=== PATIENT | female | born 1970 | race Caucasian/White ===

== ENCOUNTER 2020-02-04 15:25 | Outpatient (REF) | payer OTHER, SELFPAY ==
--- NOTE | 2020-02-04 15:31 | MM_ITS ---
EXAMINATION: MM SCREENING DIGITAL BREAST TOMOSYNTHESIS, BILATERAL CLINICAL INFORMATION: Screening. Asymptomatic. Prior history reduction mammoplasty. The lifetime risk of breast cancer based on the Tyrer-Cuzick Model is 11%. COMPARISON: Mammography: 05/04/2018, 09/19/2017, 02/03/2016; bilateral targeted breast ultrasound 05/04/2018 TECHNIQUE: Digital breast tomosynthesis is performed in both the craniocaudal and mediolateral oblique views along with computer-aided detection (CAD). Synthesized 2D images are generated from the tomosynthesis. FINDINGS: There are scattered areas of fibroglandular density (ACR BI-RADS breast composition Category b). Breast tissue composition borders on heterogeneously dense in the retroareolar and upper outer quadrants. There is minor scarring and benign anterior and dermal calcifications consistent with the prior history reduction mammoplasty. Biopsy clip marker again noted anterior lower inner left breast. Neither breast shows interval mass or developing density, interval architectural abnormality or abnormal calcifications. No significant changes. MM/MM tomosynthesis screening BI IMPRESSION: No significant changes from prior studies. ASSESSMENT: BI-RADS 2: Benign RECOMMENDATION: Routine annual mammography screening. This patient's information was entered into a reminder system with a target due date for their next mammogram.
== END 2020-02-04 15:26 | disposition home or self-care (01) ==
LOC: HO.MAMMO 15:25
PROVIDERS: Visit Provider Registered Nurse
DX: Z12.31 Encounter for screening mammogram for malignant neoplasm of breast (principal)
CPT/HCPCS: 77063; 77067

== ENCOUNTER 2020-03-31 06:54 | Outpatient (REF) | payer OTHER, SELFPAY | END 2020-03-31 06:55 | disposition home or self-care (01) | LOC: HO.LAB 06:54 | PROVIDERS: PCP Registered Nurse; Visit Provider Internal Medicine | DX: Z20.828 Contact with and (suspected) exposure to other viral communicable diseases (principal) | CPT/HCPCS: C9803; U0003 ==

== ENCOUNTER 2022-02-10 09:09 | Outpatient (REF) | payer OTHER, SELFPAY ==
--- NOTE | ~2022-02-10 | MM_ITS ---
EXAMINATION: MM SCREENING DIGITAL BREAST TOMOSYNTHESIS, BILATERAL CLINICAL INFORMATION: Screening. Asymptomatic. Prior history reduction mammoplasty. COMPARISON: Mammography: 02/04/2020, 05/04/2018, 09/19/2017 TECHNIQUE: Digital breast tomosynthesis is performed in both the craniocaudal and mediolateral oblique views along with computer-aided detection (CAD). Synthesized 2D images are generated from the tomosynthesis. FINDINGS: There are scattered areas of fibroglandular density (ACR BI-RADS breast composition Category b). Parenchymal pattern is similar to prior exams. There is minor scarring and scattered benign bilateral anterior and dermal calcifications consistent with the prior reduction mammoplasty. Axillary stromal markings anterior upper right axilla are again noted. There is no developing density or interval mass or architectural abnormality. No abnormal calcifications. No significant changes. MM/MM tomosynthesis screening BI IMPRESSION: No mammographic evidence of malignancy. ASSESSMENT: BI-RADS 2: Benign RECOMMENDATION: Routine annual mammography screening. This patient's information was entered into a reminder system with a target due date for their next mammogram.
== END 2022-02-10 09:10 | disposition home or self-care (01) ==
LOC: HO.MAMMO 09:09
PROVIDERS: PCP Registered Nurse; Visit Provider Registered Nurse
DX: Z12.31 Encounter for screening mammogram for malignant neoplasm of breast (principal)
CPT/HCPCS: 77063; 77067

== ENCOUNTER → 2024-05-17 15:00 | Outpatient (BNV) | payer OTHER, SELFPAY | PROVIDERS: PCP Family Medicine; Visit Provider Internal Medicine | DX: Z12.31 Encounter for screening mammogram for malignant neoplasm of breast (principal) | CPT/HCPCS: 77063; 77067 ==

== ENCOUNTER 2025-03-15 11:24 | Emergency (ER) | payer OTHER, SELFPAY ==
[2025-03-15 11:52] VITALS: BP 152/93; PULSE 80; RESP 18; TEMP 36.3; O2SAT 99; BMI 30.1
[2025-03-15 12:11] LABS: MANUAL DIFF FLAG NO
[2025-03-15 12:17] LABS: Hematocrit 42.8 % (37.0-47.0); Hemoglobin 14.5 g/dl (12.0-16.0); Imm Gran Abs Auto 0.02 X10*3/uL (0.00-0.03); Imm Gran Pct Auto 0.4 % (0.0-0.4); Lymphocytes Absolute Auto 1.3 X10*3/uL (1.2-4.9); Mean Corpuscular HGB Conc 33.9 g/dl (31.0-35.0); Mean Corpuscular Hemoglobin 31.4 pg (27.0-33.0); Mean Corpuscular Volume 92.6 fL (80.0-98.0); NRBC Abs Auto 0.000 X10*3/uL (0.0-0.012); NRBC Pct Auto 0.0 /100WBC (0.0-0.2); Platelet Count 246 X10*3/uL (160-400); Red Blood Count 4.62 X10*6/uL (4.20-5.50); White Blood Count 5.3 X10*3/uL (4.8-10.8)
[2025-03-15 12:21] LABS: Appearance Urine Clear; Glucose Urine UA Negative (Negative); PH 6.0 (5.0-9.0); Specific Gravity - Urine 1.010 (1.005-1.025)
[2025-03-15 12:28] LABS: Cannabinoid Screen Urine Not Detected (Not Detect)
[2025-03-15 12:46] LABS: Acetaminophen LAB < 3 mcg/mL (<30); Alanine Aminotransferase 19 U/L (0-31); Albumin Level 4.8 g/dL (3.5-5.0); Alkaline Phosphatase 75 U/L (39-117); Anion Gap 11 (12-20); Aspartate Amino Transferase 22 U/L (5-31); Blood Urea Nitrogen 10 mg/dL (9-16); Calcium 9.7 mg/dL (8.4-10.2); Carbon Dioxide 27 mmol/L (22-29); Chloride 106 mmol/L (96-108); Creatinine Clr Calc Pharmacy 104.1; Estimated Glomerular Filt Rate > 60; Magnesium 1.9 mg/dL (1.6-2.6); Potassium 4.1 mmol/L (3.3-5.1); Salicylate < 5.0 mg/dL (15-30); Sodium 140 mmol/L (135-145); Total Protein 7.4 g/dL (6.5-8.0)
--- NOTE | 2025-03-15 13:09 | ED_ITS ---
HPI - Psych General Chief Complaint: Psychiatric Symptoms Stated Complaint: SEC 12,CRISIS,SI STATEMENTS/FROM WORK PER EMS Time Seen by Provider: 03/15/25 11:27 Source: patient and EMS Mode of arrival: EMS Limitations: no limitations History of Present Illness ED Provider: MICHELLE Dang HPI Narrative: Chief Complaint: ?Brought to the emergency department after allegedly making suicidal statements at work.? History of Present Illness: 54-year-old female with no past medical or psychiatric history was transported to the ED on a Section 12 initiated at her workplace. Earlier today her furnace/water heater broke, leaving her house cold with children at home. While frustrated, she reportedly made a comment ?I?m gonna drive my car ? off a wilver,? which a coworker heard and later relayed to the principal, leading to involvement of the high school art teacher and subsequent Section 12. Approximately 1?2 hours after the comment she was removed from her classroom by police and brought by ambulance. She describes the event as humiliating, embarrassing, unnecessary, and remains confused as to why she is here. She firmly denies suicidal ideation, homicidal ideation, plans, intent, or prior psychiatric history. She states she was not evaluated by a counter supply worker and does not feel such evaluation is necessary given denial of anxiety, depression, or suicidality. She denies alcohol, tobacco, or illicit drug use. Other stressors include of mother this year. She has no acute medical complaints. Related Data Allergies Allergy/AdvReac Type Severity Reaction Status Date / Time No Known Allergies Allergy Verified 03/15/25 11:57 Review of Systems 2 Review of Systems: Yes all other systems are reviewed and are negative [facility] Past Medical History Attestation statement: The following information was validated with the patient. Source: old records reviewed and nursing notes reviewed Social History Social History Alcohol intake: current Alcohol type: wine Smoked in Last 30 Days: No Use of substances other than those prescribed or required for medical reasons: No Advance Directives: No Advance Directives Information Provided: Yes Do you have a plan to hurt others: No Plan Patient : No Physical Exam 2 Exam: Exam: Appearance: Alert.? Oriented X3.? No acute distress.? Head: Normocephalic, atraumatic, no step-offs or deformities Eyes: Pupils equal, round and reactive to light.? Neck: Normal inspection.? Neck supple.? CVS: Normal heart rate and rhythm.? Pulses normal.? Respiratory: No respiratory distress.? Breath sounds normal.? Skin: Skin warm and dry.? Normal skin color.? Normal skin turgor.? Extremities: No lower extremity edema.? No calf ttp. 5/5 strength to bilateral upper and lower extremities Back: No midline tenderness, no C-spine tenderness, full range of motion, no CVA tenderness bilaterally Neuro: Oriented X 3.? No motor deficit.? No sensory deficit. CN 2-12 intact Vital Signs: Vital Signs: Last Vital Signs Temp 97.2 F 03/15/25 15:30 Pulse 18 L 03/15/25 15:30 Resp 18 03/15/25 15:30 BP 148/88 H 03/15/25 15:30 Pulse Ox 98 03/15/25 15:30 O2 Del Method Room Air 03/15/25 15:30 BMI result Body Mass Index 30.1 vss Course Course Course Narrative: My attending Dr. Kate aware of case. Reevaluation(s) Reevaluation #1: CBC unremarkable. Chemistry with no acute findings needing intervention. UA w/ trace bacteria but not UTI sx. Salicylates, acetaminophen and ethanol negative. Story is not making sense to me, unclear why patient was sectioned will reach out for collateral. Time: 15:29 Reevaluation #2: Spoke with Quick Service Technician Brian, who acknowledged that the patient did not make any suicidal statements directly to him. He stated that he initiated the Section 12 based solely on what others had reported. When asked whether the patient was able to speak with someone from crisis, he did not provide a clear answer and instead responded with, ?I don?t think she would speak to them.? He did note that the patient was cooperative throughout the process. Witnesses to this phone call were Nallely Frias ( who was part of the conversation) and Allison Slater, and Francois Barry from crisis who were in the room for this conversation. I explained that we need to know who reported the concerning statements so that we can obtain collateral information. Based on Officer Brian?s account, there was no directly witnessed behavior or statement to justify the section, and I did not want to hold the patient inappropriately based solely on hearsay. He stated that he was unsure of the reporting individual?s name and advised us to contact the school to obtain that information and to speak with the identified witnesses. Time: 13:30 Reevaluation #3: Spoke with Teressa, Principal of [employer] [facility], who reported that she was not present during the incident. She stated that multiple staff members came to her and reported that the patient made suicidal comments in the office with a ?clear plan,? including statements such as, ?It is going to be messy,? and ?I?m not just going to take pills,? as well as comments implying she would not be present at school on Tuesday. Patient ademantly denies this. The principal reiterated that she did not personally witness these statements and could not attest to their accuracy but the employes who reported this were very concerned. She reported the information to the Quick Service Technician, who subsequently initiated the Section 12. She stated that she ?had nothing to do with? the decision to section the patient beyond relaying what was reported to her. Nallely from crisis attempted to contact the school and was connected with the [employer] Operator, who was reportedly trying to identify and contact the individual who initially reported the comments; however, Nallely was ultimately unable to speak with this person. The school expressed that they did not feel our request to speak with the reporting staff member was appropriate and did not believe that person needed to be questioned. Per the access clinician, obtaining direct collateral from that staff member was not considered part of their protocol. Time: 14:15 Additional Reevaluation(s): Lydia cleared by CARE team Nallely. [facility] was not cooperative with collateral information from person who made the allgations, this information would of been helpful. However patient has no prior attempts, no psychiatric history, Sister at bedside reports she has no concerns for her sister and feels like she is safe for DC home. She sera SI and HI. Appears calm and has been cooperative since [facility]. Medical Decision Making Medical Decision Making MDM Narrative: Clinical Summary: 54-year-old female brought in on Section 12 after a possibly misinterpreted comment at work; patient denies any suicidal or homicidal ideation, plan, or intent and has no prior psychiatric history. Problem #1: Evaluation after alleged suicidal statements Assessment: Patient denies SI/HI, plan, or intent; no prior psychiatric history; appears confused and distressed about circumstances of involuntary transport. Plan: * Medical clearance ( labs, UTOX, ethanol) * Care team consult * Collateral information ( underlying reason for section unclear as leora seems like a good historian and is denying what is written on the section) Differential Diagnosis Differential Diagnoses: The differential diagnosis associated with the presentation includes * Adjustment reaction to acute psychosocial stressor (e.g., distress over home situation and workplace misunderstanding) ( most likely) * Misinterpretation of statements without underlying psychiatric disorder ( most likely) * Mood disorder (depression, bipolar disorder) ? less likely given denial of symptoms and no history * Anxiety disorder ? less likely given denial of symptoms * Substance-induced psychiatric symptoms ? unlikely given denial of substance use * Psychotic disorder ? unlikely given denial of hallucinations and no history * Medical causes of altered mental status (e.g., metabolic, neurologic) ? unlikely given normal labs and exam Admission/Observation Consideration of admission/observation: Escalation of care including admission/observation considered Lab Data MDM Lab Attestation statement: I reviewed the patient's lab results. 03/15/25 12:05 03/15/25 12:05 Labs: Lab Results 03/15/25 Range/Units 12:05 WBC 5.3 (4.8-10.8) X10*3/uL RBC 4.62 (4.20-5.50) X10*6/uL Hgb 14.5 (12.0-16.0) g/dl Hct 42.8 (37.0-47.0) % MCV 92.6 (80.0-98.0) fL MCH 31.4 (27.0-33.0) pg MCHC 33.9 (31.0-35.0) g/dl RDW 12.1 (11.0-16.0) % Plt Count 246 (160-400) X10*3/uL MPV 9.8 (9.4-12.3) fL Immature Gran % (Auto) 0.4 (0.0-0.4) % Neut % (Auto) 66.1 (45-73) % Lymph % (Auto) 23.8 (20-40) % [place] % (Auto) 7.2 (2-11) % Eos % (Auto) 2.1 (0-4) % Baso % (Auto) 0.4 (0-2) % Lymph # (Auto) 1.3 (1.2-4.9) X10*3/uL [place] # (Auto) 0.4 (0.1-1.2) X10*3/uL Eos # (Auto) 0.1 (0.0-0.4) X10*3/uL Baso # (Auto) 0.0 (0.0-0.2) X10*3/uL Abs Immat Gran (auto) 0.02 (0.00-0.03) X10*3/uL Absolute Neuts (auto) 3.5 (2.0-8.3) x10*3/uL Absolute Nucleated RBC 0.000 (0.0-0.012) X10*3/uL Nucleated RBC % (auto) 0.0 (0.0-0.2) /100WBC Sodium 140 (135-145) mmol/L Potassium 4.1 (3.3-5.1) mmol/L Chloride 106 (96-108) mmol/L Carbon Dioxide 27 (22-29) mmol/L Anion Gap 11 L (12-20) BUN 10 (9-16) mg/dL Creatinine 0.60 (0.5-1.4) mg/dL Estim Creat Clear Calc 104.1 Estimated GFR > 60 Random Glucose 141 H (60-115) mg/dL Calcium 9.7 (8.4-10.2) mg/dL Magnesium 1.9 (1.6-2.6) mg/dL Total Bilirubin 0.5 (0.0-1.0) mg/dL AST 22 (5-31) U/L ALT 19 (0-31) U/L Alkaline Phosphatase 75 (39-117) U/L Total Protein 7.4 (6.5-8.0) g/dL Albumin 4.8 (3.5-5.0) g/dL Urine Color Yellow Urine Appearance Clear Urine pH 6.0 (5.0-9.0) Ur Specific [place] 1.010 (1.005-1.025) Urine Protein Negative (Neg-Trace) mg/dL Urine Glucose (UA) Negative (Negative) mg/dL Urine Ketones Negative (Negative) mg/dL Urine Blood Negative (Negative) Urine Nitrite Negative (Negative) Ur Leukocyte Esterase Negative (Negative) Urine RBC 0-2 (0-2) /HPF Urine WBC 0-5 (0-5) /HPF Ur Squamous Epith Cells 6-10 (0-2) /HPF Urine Bacteria Trace (None Seen) Hyaline Casts 0-2 (0-2) /LPF Salicylates < 5.0 L (15-30) mg/dL Urine Opiates Screen Not Detected (Not Detect) Ur Buprenorphine Scrn Not Detected (Not Detect) ng/mL Ur Oxycodone Screen Not Detected (Not Detect) ng/mL Urine Methadone Screen Not Detected (Not Detect) ng/mL Urine Fentanyl Screen Not Detected (Not Detect) Acetaminophen < 3 (<30) mcg/mL Ur Barbiturates Screen Not Detected (Not Detect) Ur Phencyclidine Scrn Not Detected (Not Detect) Ur Amphetamines Screen Not Detected (Not Detect) U Benzodiazepines Scrn Not Detected (Not Detect) Urine Cocaine Screen Not Detected (Not Detect) U Marijuana (THC) Screen Not Detected (Not Detect) Ethyl Alcohol < 10 mg/dL Independent Historian Clinical information obtained from an independent historian. History obtained from or confirmed by: EMS and Other ([employer]acy Salesperson Brian, Principal at [facility] ) External Record Review No previous records to review Prescription Management N/A Critical Care Time Critical Care Time Critical Care Time: No Discharge Plan Discharge Clinical Impression: Acute anxiety Patient Disposition: Home, Self-Care Instructions: Anxiety (ED) Additional Instructions: Take your medications as prescribed. If you were prescribed antibiotics today, it is important that you take your medication to their entirety, do not skip any doses, do not finish them early. Follow-up with your primary care provider this week. Return to the emergency department with new or worsening symptoms. Such as fevers, chills, chest pain, shortness of breath, nausea, vomiting, dizziness, headache, vision changes, lethargy In case of emergency call 911 Referrals: ED Physician,Scott [Physician, Emergency Medicine] Drake Saenz MD [Primary Care Provider, Internal Medicine] Stand Alone Forms: Work/School Release Interventions: [place]-Suicide Risk Severity Scale Last Done: 03/15/25 11:57 ED Discharge Assessment Last Done: 03/15/25 15:30 Discharge Date/Time: 03/15/25 15:36 Print Language: Com[place]an
--- NOTE | 2025-03-15 13:29 | PC.NURSE ---
care team spoke with patient, provider also speaking with patient.
[2025-03-15 15:30] VITALS: BP 148/88; PULSE 18; RESP 18; TEMP 36.2; O2SAT 98
--- NOTE | 2025-03-15 15:50 | MHC.CARE ---
Pt does not present as an imminent risk or meet the criteria for a higher level of care. ED provider in agreement.
--- OUTSIDE RECORDS SUMMARY | 2025-03-15 17:28 | XMS_ITS | Clinical Summary ---
Author Organization [facility] Address [address] [place] [address] Phone Care Team Providers Care Kinder Teacher Name Role Phone John Benton PA-C Primary Care Provider [phone] Allergies No known active allergies Medications atorvastatin (LIPITOR) 10 MG tablet Take 1 tablet by mouth every morning. 05/07/19 25 Active hydrocortisone acetate (ANUSOL-HC) [address] 1 suppository (25 mg total) rectally 2 (two) times a day as needed for hemorrhoid discomfort. For intermittent short-term use (ie, no more than 7 days) due to risk of mucosal thinning 14 suppository 11/09/19 25 Active lisinopril (PRINIVIL,ZESTR IL) 10 MG tabletIndicatio ns:Hypertension Take 1 tablet (10 mg total) by mouth daily. 90 tablet 3 11/22/19 25 Active estradioL (VIVELLE-DOT) 0.0375 mg/[address] 1 patch onto the skin 2 (two) times a week. 11/10/19 25 Active progesterone (PROMETRIUM) 100 mg capsule Take 100 mg by mouth nightly at bedtime. 11/18/19 25 Active LORazepam (ATIVAN) 0.5 MG tabletIndicatio ns:Anxiety Take 1 tablet (0.5 mg total) by mouth daily as needed for anxiety. 30 tablet 12/25/19 25 Active Active Problems Problem Noted Date Diagnosed Date Acute left-sided low back pain without sciatica 07/03/2024 Menopausal symptom 07/03/2024 Mixed hyperlipidemia 07/03/2024 Assessment & Plan (12/24/2024 4:08 PM EDT): Patient with a history of hyperlipidemia on atorvastatin 10 mg p.o. daily which will be continued. It we will obtain a repeat lipid panel and CMP Atypical squamous cell owen es of undetermined significance (ASCUS) on cervical cytology with positive high risk human papilloma virus (HPV) 06/08/2022 Overview (06/08/2022): 05/2022 study. No other hx abnormals. Referred to [facility] for Colposcopy Anxiety 06/06/2022 Assessment & Plan (12/24/2024 4:09 PM EDT): Patient with a history of anxiety who is on lorazepam 0.5 mg p.o. daily as needed and was on sertraline however discontinued this medication secondary to weight gain and felt that it was not working. She mentions that her anxiety has slightly improved after starting hormone therapy secondary to menopausal symptoms. However her anxiety kicked up over the summer after she had lost her mom and also dealing with family issues with regards to being accusatory. [facility] verified and new prescription for lorazepam sent to the pharmacy. Assessment & Plan (06/06/2022 6:13 PM EST): Continue sertraline as prescribed. Continue lorazepam as needed, takes rarely. External hemorrhoids 03/12/2019 Hypertension 07/24/2018 Assessment & Plan (12/24/2024 4:08 PM EDT): Patient has a history of hypertension which is well-controlled on lisinopril 10 mg p.o. daily which we will continue. We will obtain a CMP Assessment & Plan (06/06/2022 6:13 PM EST): Well-managed on current medication regimen. Resolved Problems Problem Noted Date Diagnosed Date Resolved Date Acute sinusitis 08/25/2024 12/24/2024 Assessment & Plan (08/25/2024 3:50 PM EDT): Patient appears well overall in no acute distress no acute respiratory distress Augmentin take as directed take with food and probiotic. Continue Flonase as needed recommend daily allergy medication Drink plenty of fluids and rest OTC medications for symptoms control Discussed with patient to contact ER if develops severe shortness of breath, severe dizziness, syncope, chest pain. Contact PCP office no improvement in symptoms 7- 10 days sooner worsening symptoms. Encounters Date Type Department Care Team Description 12/24/2024 3:20 PM EDT Office Visit [facility] Internal Medicine [address] [place] [address] John Benton PA-C Mixed hyperlipidemia (Primary Dx); Anxiety; Primary hypertension from Last 3 Months Immunizations Immunization Administration Dates Next Due COVID-19 (Pre-01/31) Moderna Vaccine, mRNA, PF 07/27/2020,06/29/2020 INFLUENZA, SPLIT VIRUS, TRIVALENT PF 03/17/2016 Influenza Quadrivalent Prese rvative Free IM 06/01/2022,05/22/2021,05/20/2020,2019,02/07/2018 Tdap 05/22/2021,03/08/2017 Family History Medical History Relation Comments Colon polyps Brother Sleep apnea Brother Breast cancer Cousin pre-lis in 30s Anxiety disorder Daughter Sleep apnea Father Breast cancer Maternal Aunt post-lis Heart failure Mother Hypertension Mother Stroke Mother gi bleed Mother Colon polyps Sister Sleep apnea Sister Cancer Neg Hx Diabetes Neg Hx Heart disease Neg Hx Relation Status Comments Brother Alive Cousin Alive Daughter Alive Father Alive Maternal Aunt Alive Maternal Grandfather Maternal Grandmother Mother Paternal Grandfather Paternal Grandmother Sister Alive Social History Tobacco Use Types Packs/Day Years Used Date Smoking Tobacco: Never Smokeless Tobacco: Never Tobacco Cessation:Counseling Given: Not Answered Alcohol Use Standard Drinks/Week Comments Yes 2 (1 standard drink = 0.6 oz pur e alcohol) 1-2 drinks, 2-3 x week Child or Family Care Answer Date Record ed Do you have problems with on e of the following making it difficult for you to work, study, or receive health care? No 05/25/2022 Education Answer Date Recorded Are you interested in more education? Not on colleen e 05/25/2024 Are you concerned about learning? Not on file 05/25/2024 No 05/25/2024 No 05/25/2024 Food Answer Date Recorded Within the past 6 months we worried whether our food would run out before we got money to buy more. Never True 05/25/2022 Within the past 6 months the food we bought just didn't last and we didn't have enough money to get more. Never True Residential Stability Answer Date Recor ded What is your housing situation today? I have magdalene sing 05/25/2022 How many times have you move d in the past 12 months? Zero (I did not move) 05/25/2022 Paying for Meds Answer Date Recorded Do you have trouble paying for medicines? No 05/25/2022 Paying Utility Bills Answer Date Record ed Do you have trouble paying your heating or elect ricity bill? Yes 05/25/2022 Transportation Answer Date Recorded Has the lack of transportati on kept you from medical appointments or from getting medications? No 05/25/2022 Unemployment Answer Date Recorded Are you currently unemployed or working on a part-time or temporary basis, and looking for work? No 05/25/2022 Digital Access Answer Date Recorded No 09/03/2022 No 09/03/2022 Reliable internet access at home? Not on file 09/03/2022 Device with a working camera? Not on file Intimate Partner Violence Answer Date R ecorded Denied Basic Needs Not on file 07/02/2024 In the past 12 months have y ou been in a relationship with a person who hurts, threatens, or tries to control you? No 07/02/2024 Worried food would run out Not on file 07/02 In the past 12 months have y ou been in a relationship with a person who hurts, threatens, or tries to control you? No 07/02/2024 Comments No Sex and Gender Information Value Date Recorded Sex Assigned at Not on file Legal Sex Female 11:43 AM EDT Gender Identity Not on file Sexual Orientation Not on file Last Filed Vital Signs Vital Sign Reading Time Taken Comments Blood Pressure 108/62 12/24/2024 2:56 PM EDT Pulse 67 12/24/2024 2:56 PM EDT Temperature 36.4 C (97.5 F) 05/20/2020 10:19 AM EST Respiratory Rate 19 12/24/2024 2:56 PM EDT Oxygen Saturation 99% 12/24/2024 2:56 PM EDT Inhaled Oxygen Concentration - - Weight 78.3 kg (172 lb 9.6 oz) 12/24/2024 2:56 P M EDT Height 159.4 cm (5' 2.76 ) 12/24/2024 2:56 PM ED T Body Mass Index 30.81 12/24/2024 2:56 PM EDT Plan of Treatment Upcoming Encounters Date Type Department Care Team (Late st Contact Info) Description 07/04/2025 3:20 PM EDT Office Visit [facility] Internal Medicine [address] [place] [address] John Benton PA-C [address] [place] [address] Health Maintenance Due Date Last Done Comments COLOGUARD 2014 FIT TEST 2014 FOBT 2014 SIGMOIDOSCOPY 2014 VIRTUAL COLONOSCOPY 2014 CREATININE LEVEL 04/19/2025 04/19/2024, 02/2022, 05/20/2020, Additional history exists POTASSIUM LEVEL 04/19/2025 04/19/2024, 05/12, 04/20/2019 BLOOD PRESSURE 06/23/2025 12/24/2024 DEPRESSION SCREENING 07/02/2025 07/02/2024, 02/24/20 21 PAP SMEAR 07/06/2025 07/06/2024, 05/13, 02/10/2018, Additional history exists INFLUENZA VACCINE (#1) 2025 , 05/22/2021, 05/20/2020, Additional history exists Postponed from 11/09/2024 (Patient Declines / Guardian Declines) COVID-19 VACCINE ( season) 2025 05/05/2021, 07/27/2020, 06/29/2020 Postponed from 12/10/2024 (Patient Declines / Guardian Declines) HEPATITIS C SCREENING 12/24/2025 Postpo thuy from 07/24/1987 (Patient Declines / Guardian Declines) HIV ONE-TIME SCREENING (18-65 YEARS) 12/24/2025 Postponed from 07/24/1987 (Patient Declines / Guardian Declines) PNEUMOCOCCAL VACCINES (50+ years) (1 of 1 - PCV) 12/24/2025 Postponed from 07/24/2019 (Patient Declines / Guardian Declines) ZOSTER VACCINES (1 of 2) 12/24/2025 Pos tponed from 07/24/2019 (Patient Declines / Guardian Declines) MAMMOGRAM 05/17/2026 05/17/2024, 05/2021, 02/04/2020 COLONOSCOPY 03/17/2027 03/17/2020 COLORECTAL CANCER SCREENING 03/17/2027 SCREENING FOR DIABETES 04/19/2027 , 04/19/2024, 04/20/2019 LIPID PANEL 04/19/2029 04/19/2024, 0204/2021, 04/20/2019, Additional history exists Adult Td,Tdap Booster 05/22/2031 05/22/2021, 017 RSV VACCINE (1 - 1-dose 75+ series) 2044 SMOKING STATUS SCREENING (Once After 26 Yrs) Completed 12/24/2024 HEPATITIS A VACCINES Aged Out No long er eligible based on patient's age to complete this topic HIB VACCINES Aged Out No longer eligi ble based on patient's age to complete this topic MENINGOCOCCAL VACCINES (ACWY) Aged Out No longer eligible based on patient's age to complete this topic MENINGOCOCCAL VACCINES (B) Aged Out N o longer eligible based on patient's age to complete this topic Medical Devices Not on file Procedures Procedure Name Priority Date/Time Associated Diagnosis Comments PAP TEST Routine 07/06/2024 9:40 AM EDT HM MAMMOGRAPHY Routine 05/17/2024 9:39 AM EST LIPID PANEL Routine 04/19/2024 2:42 PM EST COMPREHENSIVE METABOLIC PANEL (CMP) Routine 04/19/2024 2:42 PM EST ENDOSCOPY, COLON 03/17/2020 11:5 3 AM EST OUTSIDE GLUCOSE FASTING Routine 04/20/2019 from Last 3 Months or Most Recently Relevant to Health Maintenance Results * Pap Test (07/06/2024 9:40 AM EDT) Historical Provider CYTOLOGY ORDERABLES Final Result * HM MAMMOGRAPHY FOR RESULT ENTRY ONLY (05/17/2024 9:39 AM EST) Historical Provider HEALTH MAINTENANCE Final Result * Comprehensive metabolic panel (04/19/2024 2:42 PM EST) Sodium - External Potassium - External 4.5 Chloride - External CO2 - External BUN - External Creatinine - External 0.66 Glucose - External 113 Albumin - External Protein - External Calcium - External Alkaline Phosphatase - External Bilirubin, total - External AST - External ALT - External 25 Globulin - External eGFR - External Anion Gap - External Historical Provider LAB BLOOD BKR ORDERABLES Edited Result - Final * Lipid panel (04/19/2024 2:42 PM EST) HDL - External 79 Cholesterol, Total - External 287 Triglycerides - External 94 LDL, calculated - External 192 Cardiac Risk Ratio - External Non-HDL Cholesterol - External Historical Provider LAB BLOOD BKR ORDERABLES Edited Result - Final * ENDOSCOPY, COLON (03/17/2020 11:53 AM EST) Narrative Transcriptions Darryl Howell MD - 03/17/2020 11:53 AM EST Patient Name: Isha Wade Attending MD:: DARRYL HOWELL MD Procedure Date: 03/17/2020 11:53 AM Date of : 1970 Age: 49 Admit Type: Outpatient Gender: Female Room: [place] [address] Referring MD: Carmen Santana Exam Type: Colonoscopy Indications: Colon cancer screening in patient at increased risk: Family history of 1st-degree relative with colonpolyps before age 60 years Medications: Monitored Anesthesia Care Procedure: Informed consent was obtained from the patient after discussion of the indications, limitations, alternatives, benefits, and risks of the procedure. Risks specifically discussed include but are not limited to medication reactions, missed lesions, bleeding, perforation, or the need for emergentsurgery. Throughout the procedure, the patient's bloodpressure, pulse, end-tidal CO2, and oxygen saturations were monitored continuously. The Olympus pediatric variable colonoscopePCF-[id number] #5 was introduced through the anus and advanced tothe terminal ileum, with identification of theappendiceal orifice and IC valve. The colonoscopy was performed without difficulty. The patient tolerated theprocedure fairly well. The quality of the bowel preparationwas good. Complications: No immediate complications. Estimated blood loss:None. Findings: The perianal and digital rectal examinations were normal. Pertinent negatives include normal sphincter tone. Retroflexion in the right colon was performed. The terminal ileum appeared normal. The exam was otherwise without abnormality on direct and retroflexion views. Non-bleeding hemorrhoids were found during retroflexion. The hemorrhoids were mild. Impression: - The examined portion of the ileum was normal. - The examination was otherwise normal on direct and retroflexion views. - Non-bleeding hemorrhoids. - No specimens collected. Recommendation: - Repeat colonoscopy in 7 years for screeningpurposes. DARRYL HOWELL MD 03/17/2020 12:18:37 PM This report has been signed electronically. Number of Addenda: 0 Note Initiated On: 03/17/2020 11:53 AM Procedure Code(s): --- Professional --- 94227, Colonoscopy, flexible; diagnostic, including collection of specimen(s) by brushing or washing, when performed (separateprocedure) --- Technical --- 71213, Colonoscopy, flexible; diagnostic, including collection of specimen(s) by brushing or washing, when performed (separateprocedure) Diagnosis Code(s): --- Professional --- Z83.71, Family history of colonic polyps --- Technical --- Z83.71, Family history of colonic polyps CPT copyright 2018 [employer]. All rights reserved. The codes documented in this report are preliminary and upon mold breaker reviewmay be revised to meet current compliance requirements. Procedure Date: 03/17/2020 11:53:[address] [place] [id number] Carmen Santana [facility] GI PROCEDURE ORDERABLE S Final Result * (ABNORMAL) Outside Glucose,Fasting (04/20/2019) Glucose, fasting - External 113(A) 65 - 99 mg/dL Historical Provider LAB BLOOD ORDERABLES Chrystal l Result from Last 3 Months or Most Recently Relevant to Health Maintenance [facility] H[facility] Care Teams Kinder Teacher Relationship Specialty Start Date End Date John Benton PA-C [address] [place] [phone] [email or web address] PCP - General Physician Stone Rougher 07/03/24 Additional Source Comments The information contained in this document represents components of the legal health record. It is not the complete legal health record.[facility]
--- OUTSIDE RECORDS SUMMARY | 2025-03-15 17:28 | XMS_ITS | Encounter Summary ---
Author Organization [facility] Address [address] [place] [address] Phone Care Team Providers Care Bottom Pounder Cement Shoes Name Role Phone Denajoselyn Carmen Tawnya [facility] Primary Care Provider Carmen Santana [facility] Primary Care Provider Bonnie Collins WELL DRILL OPERATOR Primary Care Provider [phone] Shima Stallings MEDICINE TECHNOLOGIST Primary Care Provider [phone] Pcp, Unknown Primary Care Provider John Machuca PA-C Primary Care Provider [phone] Encounter Details Date Type Department Care Team (Late st Contact Info) Description 03/17/2020 Procedure Pass [facility] Endoscopy Admitting Dept Virtual Department [address] [place] [phone] Social History Tobacco Use Types Packs/Day Years Used Date Smoking Tobacco: Never Smokeless Tobacco: Never Alcohol Use Standard Drinks/Week Comments Yes 3 (1 standard drink = 0.6 oz pure alcohol) a few glasses of wine or beer a week. Comments No Sex and Gender Information Value Date Recorded Sex Assigned at Not on file Legal Sex Female 11:43 AM EDT Gender Identity Not on file Sexual Orientation Not on file documented as of this encounter Plan of Treatment Upcoming Encounters Date Type Department Care Team (Late Contact Info) Description 07/04/2025 3:20 PM EDT Office Visit [facility] Internal Medicine [address] [facility] [place] [address] John Benton PA-C [address] [place] [address] [email or web address] documented as of this encounter Visit Diagnoses Not on filedocumented in this encounter Additional Health Concerns Assessment Noted Time PHQ-2 Depression Total Score: 0 05/10/19 20 12:53 PM EST documented as of this encounter Care Teams Bottom Pounder Cement Shoes Relationship Specialty Start Date End Date Carmen Santana CNP [address] [place] [address] [email or web address] PCP - General Internal Medicine 02/10/18 05/07/20 Carmen Santana CNP [address] [place] [phone] PCP - General Internal Medicine 05/08/20 10/25/22 Bonnie Collins, MICHEL [address] [place] [phone] [email or web address] PCP - General Family Medicine 10/26/22 11/14/22 Shima Stallings FNP [address] [phone] PCP - General Nurse Practitioner 12/22/23 04/08/24 Pcp, Unknown PCP - General 05/15/24 07/02/24 John Benton PA-C [address] [place] [email or web address] PCP - General Physician Kennel Hand 07/03/24 documented as of this encounter Additional Source Comments The information contained in this document represents components of the legal health record. It is not the complete legal health record.[facility]
== END 2025-03-15 15:36 | disposition home or self-care (01) ==
PROVIDERS: Physician Assistant; Emergency Provider Emergency Medicine; PCP Internal Medicine
DX: F41.1 Generalized anxiety disorder (principal); F43.0 Acute stress reaction; R45.851 Suicidal ideations; R39.198 Other difficulties with micturition; Z51.81 Encounter for therapeutic drug level monitoring; Z79.899 Other long term (current) drug therapy
CPT/HCPCS: 36415; 80053; 80143; 80179; 80307; 81001; 83735; 85025; 99284; S9485